=== PATIENT | male | born 1960 | race Caucasian/White ===

== ENCOUNTER 2022-08-10 10:32 | Outpatient (CLI) | payer MEDICAID, SELFPAY ==
--- NOTE | 2022-08-10 10:56 | XR_ITS ---
WS: [id number] XR elbow RT min 3V* [id number] REASON FOR EXAM: Right ELBOW PAIN FINDINGS: No fracture or focal bone lesion. Joint spaces of the right elbow are intact and well preserved. No soft tissue abnormality. XR/XR elbow RT min 3V* [id number] IMPRESSION: No significant abnormality.
--- NOTE | 2022-08-10 10:56 | XR_ITS ---
WS: [id number] XR elbow LT min 3V* [id number] REASON FOR EXAM: LT ELBOW PAIN FINDINGS: No acute fracture. Deformity of the radial head compatible with old healed radial head fracture. Narrowing of the medial most ulnar humeral joint with marginal osteophytosis. No soft tissue abnormality. XR/XR elbow LT min 3V* [id number] IMPRESSION: No acute abnormality. Old healed fracture of the radial head and findings of osteoarthritis in the me dial most elbow joint as above.
== END 2022-08-10 10:33 | disposition home or self-care (01) ==
PROVIDERS: PCP Family Medicine; Visit Provider Family Medicine
DX: M25.521 Pain in right elbow (principal); M25.511 Pain in right shoulder
CPT/HCPCS: 73080

== ENCOUNTER 2022-08-10 11:06 | Outpatient (CLI) | payer OTHER, SELFPAY ==
--- NOTE | 2022-08-10 11:14 | XR_ITS ---
WS: [id number] XR shoulder RT min 2V* [id number] REASON FOR EXAM: RT SHOULDER PAIN FINDINGS: No fracture or focal bone lesion. Moderate narrowing of the acromioclavicular joint space with mild/moderate marginal osteophytosis and sclerosis. Glenohumeral joint space is not well demonstrated. Joint space appears intact without significant galen rowing. Minimal subchondral sclerosis in the humeral greater tuberosity. XR/XR shoulder RT min 2V* [id number] IMPRESSION: Mild/moderate osteoarthritis of the acromioclavicular joint.
--- NOTE | 2022-08-10 11:14 | XR_ITS ---
WS: [id number] XR hand RT 2V [id number] REASON FOR EXAM: RT HAND PAIN W/LIMITED ROM FINDINGS: No fracture or focal bone lesion. Mild narrowing of the DIP joints of the second through the fifth fingers with subchondral sclerosis a nd small marginal osteophytosis. Significant narrowing with subchondral sclerosis and marginal osteophytosis in the DIP joint and MCP joint of the with lateral subluxation. Similar but milder arthropathic change in the carpal metacarpa l joint of the thumb. No soft tissue abnormality. XR/XR hand RT 2V [id number] IMPRESSION: No acute abnormality. Mild osteoarthritis in the DIP joints of the fingers as above. Moderate osteoarthritis in the thumb as above.
== END 2022-08-10 11:07 | disposition home or self-care (01) ==
PROVIDERS: PCP Family Medicine; Visit Provider Dermatology
DX: Z02.71 Encounter for disability determination (principal)
CPT/HCPCS: 73030; 73120